=== PATIENT | female | born 1965 | race Caucasian/White ===

== ENCOUNTER 2018-12-17 17:50 | Inpatient (IN) | payer BC ==
[~2018-12-17] VITALS: Ht 166.4 cm; Wt 103.9 kg
[2018-12-17] MEDS ORDERED: ACETAMINOPHEN 325 MG TABLET PO PRN (18:15)
[2018-12-17 18:16] VITALS: BP 142/82
[2018-12-17] MEDS: AZITHROMYCIN 250 MG in IV NORMAL SALINE 250ML 250 ML IV SCH (18:30)
[2018-12-17 18:42] LABS: HEMATOCRIT 35.9 % (36.0-47.0); HEMOGLOBIN 11.7 g/dL (12.0-15.5); RED BLOOD COUNT 4.07 x10^6/uL (3.50-5.40); RED CELL DISTRIBUTION WIDTH 14.4 % (11.5-14.5); WHITE BLOOD COUNT 25.4 x10^3/uL (4.0-11.0)
[2018-12-17 18:57] LABS: ALBUMIN/GLOBULIN RATIO 0.4 (1.0-1.7); CALCIUM 9.2 mg/dL (8.5-10.1); GFR 57.8; POTASSIUM 3.7 mmol/L (3.5-5.1); TOTAL BILIRUBIN 0.3 mg/dL (0.2-1.0); TOTAL PROTEIN 7.7 g/dL (6.4-8.2)
[2018-12-17] MEDS ORDERED: LISI40TA PO (19:28)
[2018-12-17] MEDS ORDERED: ALBU2.5V5 NEB (19:28)
[2018-12-17] MEDS ORDERED: AMLO10TA8 PO (19:28)
[2018-12-17] MEDS ORDERED: VENL150C PO (19:28)
[2018-12-17] MEDS ORDERED: VENL75CA PO (19:28)
[2018-12-17] MEDS ORDERED: HYDR25TA10 PO (19:28)
[2018-12-17] MEDS ORDERED: LORA10TA3 PO (19:28)
[2018-12-17] MEDS ORDERED: OMEP20TA8 PO (19:28)
[2018-12-17 20:54] VITALS: BP 140/72
[2018-12-17] MEDS: LACTOBACILLUS RHAMNOSUS GG 1 CAPSULE. PO SCH (21:02)
[2018-12-17] MEDS: HYDROcodone/APAP 5/325MG 1 TAB TABLET PO PRN (21:02)
[2018-12-17] MEDS: MEROPENEM 1 GM in IV NORMAL SALINE 100ML 100 ML IV SCH (21:03)
[2018-12-17] MEDS ORDERED: MAG HYDROX/AL HYDROX/SIMETH 30 ML ORAL.SUSP PO PRN (21:15)
[2018-12-17] MEDS: IPRATRPIUM/ALBUTEROL 0.5/2.5MG 3 ML NEBU. NEB SCH (22:17)
[2018-12-17 23:15] VITALS: BP 108/67
[2018-12-18] MEDS ORDERED: ALBUTEROL SULFATE 2.5 MG/3 ML NEBU. NEB PRN
--- NOTE | 2018-12-18 02:11 | NUR ---
Patent arrived to unit direct admit from doctor Karel's office at approx 1745 per nurse exchange report. This nurse oriented patient to unit. Patient is resting in bed at time of assessment. 20g IV placed in R AC as well as labs drawn and blood cultures. Patient is pleasant and cooperative with assessment and medications. Will continue to monitor.
[2018-12-18 05:53] VITALS: BP 126/58
[2018-12-18] MEDS: MEROPENEM 1 GM in IV NORMAL SALINE 100ML 100 ML IV SCH ×3 (06:05→20:56)
[2018-12-18] MEDS: HYDROcodone/APAP 5/325MG 1 TAB TABLET PO PRN ×2 (06:07→18:11)
[2018-12-18] MEDS ORDERED: NON FORMULARY ITEM (Venlafaxine Hcl (Effexor Xr) 150 MG) PO SCH (09:00)
[2018-12-18] MEDS: amLODIPine BESYLATE 10 MG TABLET PO SCH (09:30)
[2018-12-18] MEDS: PANTOPRAZOLE 40 MG TABLET. PO SCH (09:31)
[2018-12-18] MEDS: hydroCHLOROthiazide 25 MG TABLET PO SCH (09:31)
[2018-12-18] MEDS: CETIRIZINE HCL 10 MG TABLET PO SCH (09:31)
[2018-12-18] MEDS: LISINOPRIL 20 MG TABLET PO SCH (09:32)
[2018-12-18] MEDS: LACTOBACILLUS RHAMNOSUS GG 1 CAPSULE. PO SCH ×2 (09:34→20:51)
[2018-12-18] MEDS: VENLAFAXINE 75 MG TABLET. PO SCH ×3 (09:35→20:51)
[2018-12-18 11:21] VITALS: BP 115/71
[2018-12-18] MEDS: IPRATRPIUM/ALBUTEROL 0.5/2.5MG 3 ML NEBU. NEB SCH ×4 (12:00→20:51)
[2018-12-18] MEDS: ENOXAPARIN 40 MG/0.4 ML SYRINGE. SQ SCH (12:01)
--- NOTE | 2018-12-18 13:33 | HP ---
ADMIT DATE: 12/17/2018 HISTORY OF PRESENT ILLNESS: The patient is a 52-year-old female patient who was seen at her primary care physician with a complaint of left-sided chest pain, shortness of breath, diaphoresis and dry cough. She apparently had had a chest x-ray done, which showed that the patient has consolidating infiltrate in the left upper lobe consistent with acute pneumonia and was admitted directly to be started on antibiotic in the form of community-acquired pneumonia. The patient denied any similar symptoms before. She apparently moved recently here to live with her daughter from [place]. PAST MEDICAL HISTORY: Significant for COPD, hypertension, osteoarthritis and proteinuria. She apparently has also had hoarseness of voice, and according to her, she has had bronchoscopy done before. PAST SURGICAL HISTORY: Significant for neck fusion surgery, has had surgery on her nose. She has also bilateral myringotomy tubes placed in both ears and the region was resected from the left eye is encroaching on her cornea as tonsillectomy, right sided oophorectomy, right breast lumpectomy, tubal ligation. She has also what seems to have ____ ureters for which she has surgery. She has also 2 C-sections. ALLERGIES: She is allergic to PENICILLIN, SULFA and CEFDINIR. MEDICATIONS: She is currently on loratadine 10 mg once a day, albuterol sulfate 2.5 mg by nebulizer every 6 hours, amlodipine 10 mg once a day, lisinopril 40 mg once a day, venlafaxine 150 mg daily, venlafaxine 75 mg daily. She is on hydrochlorothiazide 25 mg once a day and omeprazole 40 mg once a day. FAMILY HISTORY: She has 2 brothers younger and healthy. Her father at age of 45 because of myocardial infarction. Her mother is still alive and is known to have hypertension and hyperlipidemia. SOCIAL HISTORY: She is . She has a daughter who is still alive and lives here, her son committed suicide when he was 27 years old. She smokes half a pack a day, drinks a glass of wine occasionally. Does not use any drugs. 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 REVIEW OF SYSTEMS: The patient denied any blurring of vision, cataract, glaucoma or macular degeneration. Denied any earache, tinnitus or sensorineural deafness. Denied any nosebleeds, stuffy nose or postnasal drip. Denied any sore throat, sore tongue, toothache, hoarseness of voice or difficulty swallowing. Denied any nausea, vomiting, diarrhea or constipation. Denied any hematemesis, melena or hematochezia. Denied any dysuria, frequency or hematuria. Did complain of chest pain, mostly left sided together with shortness of breath, sweating and dry cough, but denied any hemoptysis. PHYSICAL EXAMINATION: GENERAL: When I examined her, on arrival to the hospital, she looked well and was clearly in no apparent respiratory distress, slightly pale, but no jaundice, cyanosis or thyromegaly. No jugular venous distention. No limb edema. VITAL SIGNS: Her heart rate was 94, blood pressure was 108/67, temperature was 98.6, respiratory rate 20, and oxygen saturation was 91% on 2.5 liters of oxygen. HEAD, EYES, EARS, NOSE AND THROAT: Showed normocephalic, atraumatic. NECK: Supple. HEART: Showed normal first and second heart sounds. No gallop or murmur. CHEST: Shows central trachea, equal bilateral chest expansion, air entry ____ she has a dull percussion noted. ABDOMEN: Distended, soft, nontender. No guarding or rigidity. No organomegaly. All hernial orifices intact. Bowel sounds normal. NEUROLOGIC: She was awake, alert, responding appropriately. All cranial nerves intact. EXTREMITIES: She moves extremities without difficulty. LABORATORY DATA: Her lab work on admission showed a white cell count of 25,400, hemoglobin 11.7, hematocrit 35, MCV was 88 and platelet count of 554,000. Her chemistry showed a serum sodium 137, potassium 3.7, chloride 99, bicarbonate 31, anion gap of 7, BUN 15, creatinine 1, estimated GFR was 58 mL per minute. Her glucose 116. Lactic acid was only 1.7, calcium was 9.2. Total bilirubin is normal. AST, ALT, alkaline phosphatase are elevated. Total protein was 7.7, albumin was 2, and her chest x-ray showed that she has left upper lobe pneumonia. ASSESSMENT AND PLAN: In summary, this is a 52-year-old female patient who was admitted with increasing shortness of breath, cough, which is dry, left side chest pain, was found to have left upper lobe pneumonia. Given her allergy to penicillin, sulfa and cefdinir, we will start her on meropenem as well as Zithromax. We will continue with all her medication. Continue with nebulized albuterol and Atrovent. Continue with pain management and we will monitor her labs closely and decide on further management accordingly. KENNETH MI MD DR: LILA/franky JOB#: [id number] / [id number]
[2018-12-18 16:16] VITALS: BP 116/73
[2018-12-18] MEDS: AZITHROMYCIN 250 MG in IV NORMAL SALINE 250ML 250 ML IV SCH (17:42)
[2018-12-18 19:54] VITALS: BP 108/72
[2018-12-18 21:21] LABS: BACTERIA,URINE FEW /HPF (0-FEW); BILIRUBIN,URINE NEG (NEG); CLARITY,URINE CLEAR; COLOR,URINE YELLOW; GLUCOSE,URINE NEG (NEG); NITRITE,URINE NEG (NEG); SQUAMOUS EPITHELIAL CELL,UR FEW /LPF; UROBILINOGEN,URINE 0.2 mg/dL (0.2 mg/dL); WBC,URINE OCC /HPF (0-4)
[2018-12-18 22:44] VITALS: BP 120/77
--- NOTE | 2018-12-19 02:47 | PN ---
DATE: 12/18/2018 SUBJECTIVE: The patient is resting, slightly propped up in bed, no apparent distress. She is awake and alert. The chest pain seemed to be slightly better. The cough is more moist now. PHYSICAL EXAMINATION: GENERAL: When I examined her, she looked pale, not jaundiced, cyanosed or thyromegaly. No jugular venous distension. No limb edema. VITAL SIGNS: Her heart rate was 100 beats per minute, blood pressure was 126/58, temperature was 98.1, respiratory rate was 18, and oxygen saturation was 92% on 2.5 liters of oxygen. HEAD, EYES, EARS, NOSE, AND THROAT: Showed normocephalic and atraumatic. NECK: Supple. HEART: Showed normal first and second heart sounds. No gallop or murmur. CHEST: Shows central trachea, equal bilateral expansion with air entry bilaterally anteriorly. She has a dull percussion noted and absent breath sounds posteriorly. I could not really appreciate any crepitation or rhonchi. ABDOMEN: Distended, soft, and nontender. NEUROLOGIC: She was awake, alert, and does have some hoarseness of voice, but otherwise, all her cranial nerves are intact. She moves extremities without difficulty. She ambulates without assistance or assistive devices. Her intake and output are incompletely recorded. LABORATORY DATA: We have no lab work done today. PLAN: To continue with IV meropenem. Continue with the Zithromax. Continue with the nebulized albuterol and Atrovent. Continue the Mucinex. I will repeat her lab work and start her also on Lovenox for a DVT prophylaxis and monitor her closely. KENNETH MI MD DR: LILA/franky JOB#: [id number] / [id number]
[2018-12-19] MEDS: HYDROcodone/APAP 5/325MG 1 TAB TABLET PO PRN ×3 (04:00→20:48)
[2018-12-19] MEDS: MEROPENEM 1 GM in IV NORMAL SALINE 100ML 100 ML IV SCH ×3 (05:17→20:55)
[2018-12-19 05:39] VITALS: BP 124/66
[2018-12-19] MEDS: IPRATRPIUM/ALBUTEROL 0.5/2.5MG 3 ML NEBU. NEB SCH ×4 (05:52→21:46)
[2018-12-19 06:30] LABS: BASO # 0.1 x10^3/uL (0.0-0.2); BASO % 0 % (0-3); EOS # 0.4 x10^3/uL (0.0-0.7); EOS % 2 % (0-3); HEMATOCRIT 33.5 % (36.0-47.0); HEMOGLOBIN 10.8 g/dL (12.0-15.5); LYMPH # 1.8 x10^3/uL (1.0-4.8); LYMPH % 10 % (24-48); MEAN CORPUSCULAR HEMOGLOBIN 29 pg (25-35); MEAN CORPUSCULAR HGB CONC 32 g/dL (31-37); MEAN CORPUSCULAR VOLUME 89 fL (79-100); MONO # 1.8 x10^3/uL (0.0-1.1); MONO % 9 % (0-9); NEUT # 14.8 x10^3uL (1.8-7.7); NEUT % 78 % (31-73); PLATELET COUNT 523 x10^3/uL (140-400); RED BLOOD COUNT 3.76 x10^6/uL (3.50-5.40); RED CELL DISTRIBUTION WIDTH 14.4 % (11.5-14.5)
[2018-12-19 06:39] LABS: ALBUMIN 1.6 g/dL (3.4-5.0); ALBUMIN/GLOBULIN RATIO 0.3 (1.0-1.7); CALCIUM 8.6 mg/dL (8.5-10.1); CREATININE 0.8 mg/dL (0.6-1.0); GFR 74.7; POTASSIUM 4.2 mmol/L (3.5-5.1); TOTAL BILIRUBIN 0.2 mg/dL (0.2-1.0); TOTAL PROTEIN 6.7 g/dL (6.4-8.2)
[2018-12-19] MEDS: PANTOPRAZOLE 40 MG TABLET. PO SCH (08:12)
[2018-12-19] MEDS: CETIRIZINE HCL 10 MG TABLET PO SCH (08:12)
[2018-12-19] MEDS: LISINOPRIL 20 MG TABLET PO SCH (08:12)
[2018-12-19] MEDS: amLODIPine BESYLATE 10 MG TABLET PO SCH (08:12)
[2018-12-19] MEDS: LACTOBACILLUS RHAMNOSUS GG 1 CAPSULE. PO SCH ×2 (08:12→20:47)
[2018-12-19] MEDS: VENLAFAXINE 75 MG TABLET. PO SCH ×3 (08:13→20:47)
[2018-12-19] MEDS: hydroCHLOROthiazide 25 MG TABLET PO SCH (08:13)
[2018-12-19 08:58] LABS: % ATYL 1 % (0-0); % BANDS 2 % (0-9); % BASOS 0 % (0-3); % EOS 2 % (0-5); % LYMPHS 13 % (24-48); % MONOS 13 % (0-10); % SEGS 69 % (35-66); PLT ESTIMATE INCREASED (ADEQUATE)
[2018-12-19] MEDS: LIDOCAINE (700MG/PATCH) PATCH. TD SCH (09:13)
[2018-12-19 10:59] VITALS: BP 110/58
[2018-12-19] MEDS: ENOXAPARIN 40 MG/0.4 ML SYRINGE. SQ SCH (12:19)
--- NOTE | 2018-12-19 13:31 | NUR ---
Pt complaining of a lot of pain on left side. Tried lidocaine patches with no help. Hydrocodone just knocks the edge off the pain. Will discuss with Dr To.
[2018-12-19] MEDS ORDERED: ONDANSETRON PF 4 MG/2 ML VIAL. IVP PRN (14:30)
[2018-12-19] MEDS ORDERED: MORPHINE SULFATE 4 MG/ML DISP.SYRIN. IV PRN (14:30)
[2018-12-19] MEDS ORDERED: IOHEXOL 350 MG/ML 100 ML VIAL. IV ONE (14:45)
[2018-12-19 15:43] VITALS: BP 110/69
--- NOTE | 2018-12-19 17:49 | RAD ---
Exam: CT of chest with contrast INDICATION: Worsening chest pain and shortness of breath TECHNIQUE: Sequential axial images through the chest obtained following the administration of 100 mL of Omni 350 IV contrast. Sagittal and coronal reformatted images were reconstructed from the axial data and reviewed. 3-D reformatted images were reconstructed from the axial data and reviewed. Comparisons: None FINDINGS: Visualized portions of the thyroid are unremarkable. Several prominent and mildly enlarged lymph nodes are noted, predominantly in the prevascular. Largest series 3 image 31 measuring 1 cm in short axis. Heart size is normal. No pericardial effusion. Thoracic aorta has a normal course and caliber. Pulmonary artery is not enlarged. No pulmonary embolus is identified within the main, lobar or segmental pulmonary arteries. There is abrupt cut off of the left upper lobe bronchus. Airways are otherwise patent. Complete consolidation of the left upper lobe. No pneumothorax. Remaining lungs are clear. No pleural effusion or thickening. Visualized upper abdomen is unremarkable. No suspicious osseous lesions or acute fractures. IMPRESSION: 1. Abrupt cut off of the left upper lobe bronchus with complete consolidation of the left upper lobe. Findings are favored to represent an obstructing endobronchial lesion, such as mucous plugging. Postobstructive infectious process is difficult to exclude. 2. No evidence for pulmonary embolus. Exposure: One or more of the following in the visualized dose reduction techniques were utilized for this examination: 1. Automated exposure control 2. Adjustment of the MA and/or KV according to patient size 3. Use of iterative of reconstructive technique Electronically signed by: Rui Eddy MD (12/19/2018 5:46 PM) [id number]
[2018-12-19] MEDS: AZITHROMYCIN 250 MG in IV NORMAL SALINE 250ML 250 ML IV SCH (18:31)
[2018-12-19 20:01] VITALS: BP 98/60
[2018-12-19 22:40] VITALS: BP 98/65
--- NOTE | 2018-12-20 02:20 | PN ---
DATE: 12/19/2018 SUBJECTIVE: The patient continues to complain of severe left-sided pleuritic chest pain, aggravated by taking a deep breath, coughing, and moving has had no fever. PHYSICAL EXAMINATION: GENERAL: When I examined her, she looked somewhat pale, but no jaundice, cyanosis or thyromegaly. No jugular venous distention. No limb edema. VITAL SIGNS: Her heart rate was 85, blood pressure was 110/58, temperature was 98, respiratory rate was 20, and oxygen saturation was 92% on 2.5 liters of oxygen. HEAD, EYES, EARS, NOSE AND THROAT: Showed normocephalic, atraumatic. NECK: Supple. HEART: Showed normal first and second heart sounds. No gallop or murmur. CHEST: Shows central trachea, good chest expansion, air entry anteriorly, she has dull percussion noted and absent breath sounds posteriorly on the left side, I could not appreciate any crepitation or rhonchi. ABDOMEN: Distended, soft, nontender. NEUROLOGIC: She is awake, alert, responding appropriately. All cranial nerves are intact. She moves extremities without difficulty. She ambulates without assistance or assistive devices. Her intake over the last 24 hours and output were incompletely recorded. LABORATORY DATA: Showed a white cell count is down to 19,000, hemoglobin 11, hematocrit 33, MCV 89 and platelet count 523,000. His chemistry showed a serum sodium 139, potassium 4.2, chloride 100, bicarbonate 33, anion gap of 6, BUN 13, creatinine 0.8, estimated GFR was 74 mL per minute. Her glucose was 91, calcium was 8.6. Total bilirubin, AST, ALT slightly elevated. Total protein was 6.7, albumin was 1.6. So far, the blood cultures still negative. ASSESSMENT: 1. Community-acquired pneumonia. 2. Chronic obstructive pulmonary disease exacerbation. 3. Hypertension. 4. Osteoarthritis. 5. Proteinuria. PLAN: My plan is to arrange for her to have a CT scan of the chest and we will decide on further management. I also started her on morphine 4 mg IV every 4 hours. We will repeat all her lab works again and await the result of the CT angio. KENNETH MI MD DR: LILA/franky JOB#: [id number] / [id number]
--- NOTE | 2018-12-20 04:59 | NUR ---
Shift Note: Pt is a/ox4. VSS. IV is saline locked other than for IV antibiotics as ordered. No c/o n/v. Pt continues to c/o left flank pain. Pt requires 3 liters NC at this time to maintain sats >90%. Steady gait observed, pt is independent.
[2018-12-20] MEDS: IPRATRPIUM/ALBUTEROL 0.5/2.5MG 3 ML NEBU. NEB SCH ×3 (05:01→16:09)
[2018-12-20 05:25] VITALS: BP 110/71
[2018-12-20] MEDS: MEROPENEM 1 GM in IV NORMAL SALINE 100ML 100 ML IV SCH ×2 (05:29→13:18)
[2018-12-20] MEDS: HYDROcodone/APAP 5/325MG 1 TAB TABLET PO PRN ×2 (05:32→11:40)
[2018-12-20 06:37] LABS: HEMATOCRIT 33.6 % (36.0-47.0); HEMOGLOBIN 10.7 g/dL (12.0-15.5); RED BLOOD COUNT 3.74 x10^6/uL (3.50-5.40); RED CELL DISTRIBUTION WIDTH 14.4 % (11.5-14.5); WHITE BLOOD COUNT 16.3 x10^3/uL (4.0-11.0)
[2018-12-20 06:44] LABS: CALCIUM 8.6 mg/dL (8.5-10.1); CREATININE 0.8 mg/dL (0.6-1.0); GFR 74.7; POTASSIUM 4.5 mmol/L (3.5-5.1)
[2018-12-20] MEDS: PANTOPRAZOLE 40 MG TABLET. PO SCH (08:06)
[2018-12-20] MEDS: LIDOCAINE (700MG/PATCH) PATCH. TD SCH (08:06)
[2018-12-20] MEDS: LACTOBACILLUS RHAMNOSUS GG 1 CAPSULE. PO SCH (08:06)
[2018-12-20] MEDS: hydroCHLOROthiazide 25 MG TABLET PO SCH (08:06)
[2018-12-20] MEDS: CETIRIZINE HCL 10 MG TABLET PO SCH (08:06)
[2018-12-20] MEDS: VENLAFAXINE 75 MG TABLET. PO SCH ×2 (08:07→13:18)
[2018-12-20] MEDS: LISINOPRIL 20 MG TABLET PO SCH (08:07)
[2018-12-20] MEDS: amLODIPine BESYLATE 10 MG TABLET PO SCH (08:07)
[2018-12-20 10:26] VITALS: BP 102/67
[2018-12-20] MEDS: ENOXAPARIN 40 MG/0.4 ML SYRINGE. SQ SCH (11:35)
--- NOTE | 2018-12-20 15:00 | NUR ---
NURSING NOTE: THIS NURSE JUST SPOKE TO PATIENT'S DAUGHTERNIRMAL TO EXPLAIN THE CURRENT PLAIN OF TREATMENT. PATIENT'S DAUGHTER WAS EXPLAINED THAT D/T PATIENT'S CT RESULTS IT IS BEST [facility]. PATIENT'S DAUGHTER STATED UNDERSTANDING AND SHARED NO CONCERNS.
[2018-12-20 15:52] VITALS: BP_SYST 102; BP_SYST 108; BP_DIAS 67; BP_DIAS 70
--- NOTE | 2018-12-20 19:09 | NUR ---
NURSING NOTE DISCHARGE PT TRANSFERRED TO [facility] VIA EMS ACCOMPANIED BY EMS PERSONNEL AT 1905. REPORT CALLED TO RN AT [facility]. PT BELONGINGS SENT WITH EMS. COPY OF CHART SENT WITH EMS. NO COMPLICATIONS. SYLVIA BAUMANN.
--- NOTE | 2018-12-20 19:52 | DS ---
DATE OF DISCHARGE: 12/20/2018 HOSPITAL COURSE: The patient is a 52-year-old female patient who was admitted directly from her primary care physician's office with a complaint of left side chest pain, shortness of breath, diaphoresis, dry cough. She has also some hoarseness of voice. Had a chest x-ray done, which showed that she has consolidating infiltrate in her left upper lobe consistent with acute pneumonia, was admitted, started on antibiotic for community-acquired pneumonia. She is allergic to PENICILLIN AND SULFA DRUGS AND CEFDINIR. Therefore, we started her on meropenem and Zithromax. She continued to complain of severe pain in her left side of the chest and therefore a CT scan of the chest with PE protocol was done and showed that there is abrupt cutoff of the left upper lobe bronchus with complete consolidation of the left upper lobe, findings are favored to represent an obstructing endobronchial lesion such as mucus plugging, postobstructive infectious process is difficult to exclude. No evidence of pulmonary embolus. I did speak with Dr. Khan who recommended transferring the patient to [facility] to schedule bronchoscopy tomorrow. PHYSICAL EXAMINATION: GENERAL: When I saw her this afternoon, she looked well and was clearly in no apparent respiratory distress. No pallor, jaundice, cyanosis or thyromegaly. No jugular venous distention. No limb edema. VITAL SIGNS: Her heart rate was 83, blood pressure 102/67, temperature was 98.3, respiratory rate 20, and oxygen saturation was 93% on 2 liters of oxygen. HEAD, EYES, EARS, NOSE AND THROAT: Showed normocephalic, atraumatic. NECK: Supple. HEART: Showed normal first and second heart sounds. No gallop, rub or murmur. CHEST: Clear to auscultation. No crepitation or rhonchi. ABDOMEN: Distended, soft, nontender. NEUROLOGIC: She is awake, alert, responding appropriately. All cranial nerves intact. EXTREMITIES: She moves extremities without difficulty. She ambulates without assistance or assistive devices. LABORATORY DATA: This morning showed a white cell count is down to 16,300, hemoglobin 10.7, hematocrit 33.6, MCV 90 and platelet count 547,000. Serum sodium 138, potassium 4.5, chloride 100, bicarbonate 34, anion gap of 4, BUN 12, creatinine 0.8, estimated GFR was 75 mL per minute. Her glucose was 89, calcium was 8.6. Total bilirubin normal; however, AST, ALT, alkaline phosphatase are elevated. DISCHARGE MEDICATIONS: The patient was transferred to [facility] to continue on IV meropenem 1 gram IV q.8 hourly, Zithromax 500 mg IV daily, together with Lovenox 40 mg subcutaneous daily, ondansetron 4 mg IV every 4 hours, Lidoderm patch daily, venlafaxine 75 mg 3 times a day, Protonix 40 mg once a day, cetirizine 10 mg once a day, lisinopril 40 mg once a day, hydrochlorothiazide 25 mg once a day, amlodipine besylate 10 mg once a day, albuterol sulfate 2.5 mg by nebulizer every 6 hours, Mucinex 600 mg twice a day, lactobacillus rhamnosus 1 capsule twice a day, hydrocodone/APAP one tablet every 6 hours, Tylenol 650 mg every 4 hours and DuoNeb in 3 mL by nebulizer 4 times a day. FINAL DISCHARGE DIAGNOSES: Left upper lobe pneumonia, abrupt cutoff of the left upper lobe bronchus with complete consolidation of the left upper lobe. Findings are favored to represent an obstructing endobronchial lesion such as mucus plugging. Other medical problems include chronic obstructive pulmonary disease, hypertension, osteoarthritis and proteinuria. She also had hoarseness of voice and according to her she has had bronchoscopy done before. KENNETH MI MD DR: LILA/franky JOB#: [id number] / [id number]
== END 2018-12-20 19:11 | disposition short-term general hospital (02) | DRG 871 ==
LOC: 1 SOUTH 17:50
PROVIDERS: ADMIT Internal Medicine; ATTEND Internal Medicine
DX: A41.9 Sepsis, unspecified organism (principal); J18.1 Lobar pneumonia, unspecified organism; J44.0 Chronic obstructive pulmonary disease with (acute) lower respiratory infection; J44.1 Chronic obstructive pulmonary disease with (acute) exacerbation; F17.210 Nicotine dependence, cigarettes, uncomplicated; I10 Essential (primary) hypertension; M19.90 Unspecified osteoarthritis, unspecified site; Z82.49 Family history of ischemic heart disease and other diseases of the circulatory system; Z88.2 Allergy status to sulfonamides; Z98.1 Arthrodesis status; Z88.0 Allergy status to penicillin; Z88.8 Allergy status to other drugs, medicaments and biological substances
CPT/HCPCS: 36415; 71046; 71275; 80048; 80053; 81001; 83605; 85007; 85025; 85027; 87040; 94640; 94760; J0456; J1650; J2185; J2270; J7050; J7620; Q9967

== ENCOUNTER → 2018-12-17 | Outpatient (CLI) | payer BC ==
[~2018-12-17] MED LIST: ALBU2.5V5 NEB; AMLO10TA8 PO; HYDR25TA10 PO; LISI40TA PO; LORA10TA3 PO; OMEP20TA8 PO; VENL150C PO; VENL75CA PO
--- NOTE | 2018-12-17 17:12 | RAD ---
PA and lateral chest. HISTORY: Cough PA and lateral views were taken of the chest. There is a consolidating infiltrate in the left lobe upper lobe consistent with an acute pneumonia. IMPRESSION: 1. Left upper lobe pneumonia. Electronically signed by: Jalen Benoit MD (12/17/2018 5:09 PM) [id number]
== END | disposition home or self-care (01) ==
LOC: RAD 16:52
PROVIDERS: ATTEND Registered Nurse
DX: J18.1 Lobar pneumonia, unspecified organism (principal)
CPT/HCPCS: 71046

== ENCOUNTER → 2019-01-24 | Outpatient (CLI) | payer BC ==
[2018-12-20 15:52] VITALS: BP 108/70
--- NOTE | 2019-01-24 16:41 | RAD ---
EXAM: Right tibia and fibula, 2 views; right foot, 3 views. HISTORY: Pain. COMPARISON: None. FINDINGS: 3 views of the right foot and 2 views of the right tibia and fibula are obtained. There is a suspected bone island within the medial tibial plateau. There is no suspicious osseous lesion. There is no periosteal reaction. No acute fracture is seen. There is a tiny plantar spur. IMPRESSION: No acute osseous finding. Electronically signed by: Susanna Servin MD (01/24/2019 4:38 PM) [facility]
--- NOTE | 2019-01-24 16:50 | RAD ---
EXAM: Lumbar spine, 3 views. HISTORY: Pain. COMPARISON: 12/19/2018. FINDINGS: 3 views of the lumbar spine are obtained. There is a moderate anterior wedge compression fracture of L1. No significant retropulsion of the cortex is seen. The remainder of the vertebral bodies are normal in height. There is multilevel endplate remodeling and facet arthropathy. IMPRESSION: 1. Moderate L1 compression fracture. This is seen on the CT dated 12/19/2018. 2. Multilevel degenerative change. Electronically signed by: Susanna Servin MD (01/24/2019 4:47 PM) [place] [id number]
== END | disposition home or self-care (01) ==
LOC: DXRAD 16:10
PROVIDERS: ATTEND Family Medicine
DX: M48.56XA Collapsed vertebra, not elsewhere classified, lumbar region, initial encounter for fracture (principal); M47.816 Spondylosis without myelopathy or radiculopathy, lumbar region; M46.86 Other specified inflammatory spondylopathies, lumbar region; M79.604 Pain in right leg; M79.671 Pain in right foot
CPT/HCPCS: 72100; 73590; 73630

== ENCOUNTER 2019-06-03 09:41 | Emergency (ER) | payer BC ==
[~2019-06-03] VITALS: Ht 166.4 cm; Wt 95.4 kg
[2019-06-03 09:46] VITALS: BP 138/70
[2019-06-03] MEDS ORDERED: NAPR500T8 PO (10:44)
[2019-06-03] MEDS ORDERED: HYDR-3165 PO (10:44)
--- NOTE | 2019-06-03 10:44 | PHYS DOC ---
Past History Past Medical History: COPD, Hypertension Past Surgical History: No Surgical History Alcohol Use: None General Adult EDM: Chief Complaint: MECHANICAL FALL HPI: HPI: Patient is a 53-year-old female who presents after she fell 8 days ago. She states she fell down some steps and since that time has had a sharp pain on the right side of her chest. States it is worse with any movement and occasionally with deep breath. She denies any fever chills or sweats. She denies any shortness of breath or dyspnea on exertion. She states it does hurt quite a bit when she is using a mop. [] Review of Systems: Review of Systems: Constitutional: Denies fever or chills Eyes: Denies change in visual acuity HENT: Denies nasal congestion or sore throat Respiratory: Denies cough or shortness of breath Cardiovascular: Per HPI GI: Denies abdominal pain, nausea, vomiting, bloody stools or diarrhea : Denies dysuria Musculoskeletal: Denies back pain or joint pain Integument: Denies rash Neurologic: Denies headache, focal weakness or sensory changes Endocrine: Denies polyuria or polydipsia Lymphatic: Denies swollen glands Psychiatric: Denies depression or anxiety Heart Score: Risk Factors: Risk Factors: DM, Current or recent (<one month) smoker, HTN, HLP, family history of CAD, obesity. Risk Scores: Score 0 - 3: 2.5% MACE over next 6 weeks - Discharge Home Score 4 - 6: 20.3% MACE over next 6 weeks - Admit for Clinical Observation Score 7 - 10: 72.7% MACE over next 6 weeks - Early Invasive Strategies Allergies: Allergies: Allergies Coded Allergies Type Severity Reaction Last Updated Verified Penicillins Allergy Intermediate 12/17/18 Yes Sulfa (Sulfonamide Antibiotics) Allergy Intermediate 12/17/18 Yes cefdinir Allergy Intermediate 12/17/18 Yes Physical Exam: PE: Constitutional: Well developed, well nourished, mild distress, non-toxic appearance. [] HENT: Normocephalic, atraumatic, bilateral external ears normal, oropharynx moist, no oral exudates, nose normal. [] Eyes: PERRLA, EOMI, conjunctiva normal, no discharge. [] Neck: Normal range of motion, no tenderness, supple, no stridor. [] Cardiovascular:Heart rate regular rhythm, no murmur [] Lungs & Thorax: Patient has tenderness to palp across her right chest [] Abdomen: Bowel sounds normal, soft, no tenderness, no masses, no pulsatile masses. [] Skin: Warm, dry, no erythema, no rash. [] Back: No tenderness, no CVA tenderness. [] Extremities: No tenderness, no cyanosis, no clubbing, ROM intact, no edema. [] Neurologic: Alert and oriented X 3, normal motor function, normal sensory function, no focal deficits noted. [] Psychologic: Affect normal, judgement normal, mood normal. [] Current Patient Data: Vital Signs: Vital Signs Date Time Temp Pulse Resp B/P (MAP) Pulse Ox O2 Delivery O2 Flow Rate FiO2 06/03/19 09:46 98.2 83 16 138/70 (92) 94 Room Air EKG: EKG: [] Radiology/Procedures: Radiology/Procedures: [] Course & Med Decision Making: Course & Med Decision Making Pertinent Labs and Imaging studies reviewed. (See chart for details) [] Dragon Disclaimer: Dragon Disclaimer: This electronic medical record was generated, in whole or in part, using a voice recognition dictation system. Departure Departure: Impression: Primary Impression: Chest wall contusion Qualified Codes: S20.211A - Contusion of right front wall of thorax, initial encounter Disposition: HOME, SELF-CARE Condition: STABLE Referrals: CORRINE SAL MD (PCP) Patient Instructions: Chest Wall Pain Additional Instructions: Return to the emergency department with any new or concerning symptoms Scripts Hydrocodone Bit/Acetaminophen (NORCO 5-325 TABLET) 1 Each Tablet 1-2 TAB PO Q4-6HRS for PAIN, #10 TAB Prov: TANK TURCIOS DO 06/03/19 Naproxen (NAPROXEN) 500 Mg Tablet. 1 TAB PO Q12HR PRN for PAIN, #60 TAB 1 Refill Prov: TANK TURCIOS DO 06/03/19 TANK TURCIOS DO Jun 03, 2019 10:44
[2019-06-03] MEDS ORDERED: KETOROLAC 60 MG/2 ML VIAL. IM ONE (10:45)
[2019-06-03] MEDS ORDERED: ORPHENADRINE CITRATE 60 MG/2 ML VIAL. IM ONE (10:45)
== END 2019-06-03 11:53 | disposition home or self-care (01) ==
LOC: ER 09:41
DX: S20.211A Contusion of right front wall of thorax, initial encounter (principal); J44.9 Chronic obstructive pulmonary disease, unspecified; I10 Essential (primary) hypertension; Z88.0 Allergy status to penicillin; Z88.2 Allergy status to sulfonamides; Z88.1 Allergy status to other antibiotic agents; W10.8XXA Fall (on) (from) other stairs and steps, initial encounter; Y93.89 Activity, other specified; Y92.89 Other specified places as the place of occurrence of the external cause; Y99.8 Other external cause status
CPT/HCPCS: 96372; 99284; J1885; J2360

== ENCOUNTER → 2019-06-04 | Outpatient (CLI) | payer BC ==
[2019-06-03 09:46] VITALS: BP 138/70
[~2019-06-04] MED LIST changes: +HYDR-3165 PO; +NAPR500T8 PO
--- NOTE | 2019-06-04 08:12 | RAD ---
PA and lateral views of the chest. Comparison: 12/09/2018. Indication: Chest pain and pressure in the left pectoral region after fall one week ago. Findings: The heart size is normal. No pneumothorax or effusion. No air space or interstitial disease. The bony structures are intact. Impression: 1. No acute cardiopulmonary process. Electronically signed by: Kishore Lux MD (06/04/2019 8:09 AM) [id number]
== END | disposition home or self-care (01) ==
LOC: DXRAD 07:47
PROVIDERS: ATTEND Physician Assistant Medical
DX: S20.219A Contusion of unspecified front wall of thorax, initial encounter (principal); X58.XXXA Exposure to other specified factors, initial encounter; Y93.89 Activity, other specified; Y92.89 Other specified places as the place of occurrence of the external cause; Y99.8 Other external cause status
CPT/HCPCS: 71046

== ENCOUNTER → 2020-03-23 | Outpatient (CLI) | payer BC ==
[~2020-03-23] MED LIST changes: +AMLO-187 PO; -AMLO10TA8 PO; -LISI40TA PO; +LISI40TA6 PO
--- NOTE | 2020-03-23 16:48 | RAD ---
Bilateral lower survey arterial duplex ultrasound study without comparison leg pain, right greater th an left. Bilateral ABIs are also calculated. TECHNIQUE AND FINDINGS: Real-time grayscale and color spectral Doppler evaluation of the arteries of lower extremity is performed. The RK on the right is 1.1 on the left 1.0. On the right, there is triphasic flow within the common femoral artery, with very mild noncalcified atherosclerosis. The remaining arteries are all widely pa tent with biphasic flow. No focal velocity elevations are identified. On the left findings are symmet rical, with wide patency and triphasic flow within the common femoral artery, with just a mild amount of calcified atherosclerosis. Triphasic flow within the patent proximal superficial femoral artery, and biphasic flow throughout the remainder of the patent vessels with no focal velocity elevations. IMPRESSION: 1. Mild bilateral common femoral artery atherosclerosis with no sonographic evidence of hemodynamical ly significant stenosis in either lower extremity. 2. Normal ABIs. Electronically signed by: Hans Mckenna MD (03/23/2020 4:46 PM) [id number]
--- NOTE | 2020-03-26 12:31 | RAD ---
PROCEDURE: MG 2D BILAT SCREENING HISTORY: The patient is 54 years old and is seen for Reason: SCREENING / Spl. Instructions: / Histor y: . COMPARISON: None. This will serve as a new baseline. TECHNIQUE: CC and MLO views of both breasts were obtained. Images were processed by the [employer] computer-aided detection system. DENSITY: The breast tissue is predominantly fatty. FINDINGS: No developing mass, suspicious calcifications or architectural distortion. IMPRESSION: Negative. No evidence of malignancy. Recommend annual screening mammograms per [employer] guidelines. BI-RADS category 1 Negative Patient entered into a reminder system for annual screening mammogram. Electronically signed by: Nancy Laird MD (03/26/2020 12:29 PM) [id number]
== END ==
LOC: MAMMO 10:30
PROVIDERS: ATTEND Family Medicine
DX: Z12.31 Encounter for screening mammogram for malignant neoplasm of breast (principal); I70.203 Unspecified atherosclerosis of native arteries of extremities, bilateral legs
CPT/HCPCS: 77067; 93922; 93925

== ENCOUNTER → 2020-03-25 | Outpatient (CLI) | payer BC ==
--- NOTE | 2020-03-25 15:06 | RAD ---
US PELVIS COMPLETE Clinical Indication: Reason: ABNORMAL VAG BLEEDING / Spl. Instructions: / History: Comparison: None. TECHNIQUE: Real-time ultrasound imaging of the pelvis using transabdominal and transvaginal window is performed. Findings: Transabdominal window is nondiagnostic due to obscuration by overlying bowel gas. Anteverted uterus. Uterus measures 6.2 x 5 x 3.3 cm. No focal abnormality of the myometrium. The endometrial stripe is upper limits of normal measuring 5 mm. Normal blood flow in the right ovary. There is a right ovary cyst measuring 1.1 x 1.1 x 0.7 cm. Left oophorectomy. There is no pelvic free fluid. No evidence of adnexal mass. IMPRESSION: 1. The endometrial stripe is upper limits of normal for a postmenopausal female with bleeding. 2. Small right ovary cyst. Electronically signed by: Wallace Brown MD (03/25/2020 3:04 PM) [id number]
== END ==
LOC: US 13:20
PROVIDERS: ATTEND Physician Assistant Medical
DX: N85.4 Malposition of uterus (principal); N83.201 Unspecified ovarian cyst, right side; N93.9 Abnormal uterine and vaginal bleeding, unspecified
CPT/HCPCS: 76856

== ENCOUNTER → 2020-09-10 | Outpatient (CLI) | payer BC ==
--- NOTE | 2020-09-10 11:26 | RAD ---
XR KNEE 3 [id number] 09/10/2020 11:22 AM Indication: Right knee pain Comparison: Tib-fib radiograph January 24, 2019 Technique: 3 views of the right knee Findings: No acute fracture or dislocation. Sclerotic focus the medial aspect of the tibial plateau i s stable, likely a bone island. There is no knee joint effusion. The surrounding soft tissues are nor mal. Impression: No acute osseous abnormality. Electronically signed by: Kee Barrios (09/10/2020 11:24 AM) [id number]
== END ==
LOC: RAD 10:41
PROVIDERS: ATTEND Family Medicine
DX: M25.561 Pain in right knee (principal)
CPT/HCPCS: 73562